=== PATIENT | male | born 1985 | race Caucasian/White ===

== ENCOUNTER → 2020-08-02 | Outpatient (CLI) | payer SELFPAY ==
--- NOTE | 2020-08-02 09:00 | VAS_PTH ---
PATIENT: TICO PENNINGTON LOC: [facility] U#:[id number] AGE/SX: 35/M ROOM: RE08/02/[address]: Dr. Desmond Ojeda MD : [id number] BED: DIS: 08/02/2020 SPEC #: [id number] RECD: 08/02/20 11:19 STATUS: VASILE MADELAINE #: [id number] SANJANA: 08/02/20 09:[address]: Desmond Ojeda DEPT: SURGICAL PATHOLOGY RECD BY: Yanci Castaneda ENTERED: 08/02/20 12:29 SP TYPE: VAS OTHR DR: Dr. Arpit Pennington MD Tissues: A - Vas deferens, NOS B - Vas deferens, NOS Procedures: Surgery Specimen Level II HEADER OPERATION: Bilateral partial vasectomy PRE-OP DIAGNOSIS: Sterilization TISSUE SUBMITTED: A - Right vas deferens, B - Left vas deferens MICROSCOPIC DIAGNOSIS A. Right vas deferens, partial vasectomy: Completely transected segment of vas deferens, no pathologic diagnosis. B. Left vas deferens, partial vasectomy: Completely transected segment of vas deferens, no pathologic diagnosis. ANNA:markos 08/03/2020 MICROSCOPIC DESCRIPTION Slides are reviewed. GROSS DESCRIPTION A - Received is one container designated right vas deferens. The specimen consists of a tubular segment of molina soft tissue measuring 0.8 cm in length and 0.2 cm in diameter. The entire specimen is submitted in one cassette. It will be sectioned at the time of embedding. B - Received is one container designated left vas deferens. The specimen consists of a tubular segment of molina soft tissue measuring 1 cm in length and 0.2 cm in diameter. The entire specimen is submitted in one cassette. It will be sectioned at the time of embedding. / ANNA:markos 08/02/20 TC:4 CPT: 43300 x2
== END | disposition home or self-care (01) ==
LOC: LABSPEC 12:04
PROVIDERS: PCP Family Medicine; Referring Provider Surgery; Visit Provider Surgery
DX: Z30.2 Encounter for sterilization (principal)
CPT/HCPCS: 88302

== ENCOUNTER → 2020-09-07 | Outpatient (CLI) | payer SELFPAY ==
[2020-09-10 12:15] LABS: Semen Analysis Post Vas REVIEWED
== END | disposition home or self-care (01) ==
LOC: LABSPEC 13:26
PROVIDERS: PCP Family Medicine; Referring Provider Surgery; Visit Provider Surgery
DX: Z30.2 Encounter for sterilization (principal)
CPT/HCPCS: 89321

== ENCOUNTER → 2020-10-05 09:38 | Outpatient (CLI) | payer SELFPAY ==
[2020-10-08 13:33] LABS: Semen Analysis Post Vas REVIEWED
== END ==
PROVIDERS: PCP Family Medicine; Referring Provider Surgery; Visit Provider Surgery
DX: Z30.2 Encounter for sterilization (principal)
CPT/HCPCS: 89321

== ENCOUNTER → 2020-10-29 08:35 | Outpatient (CLI) | payer SELFPAY ==
[2020-10-30 12:25] LABS: Semen Analysis Post Vas ABSENT
== END ==
PROVIDERS: PCP Family Medicine; Referring Provider Surgery; Visit Provider Surgery
DX: Z30.2 Encounter for sterilization (principal)
CPT/HCPCS: 36415; 89321

== ENCOUNTER → 2020-10-31 | Outpatient (CLI) | payer SELFPAY ==
[2020-10-31 10:39] LABS: Semen Analysis Post Vas ABSENT
== END | disposition home or self-care (01) ==
LOC: LABSPEC 08:31
PROVIDERS: PCP Family Medicine; Referring Provider Surgery; Visit Provider Surgery
DX: Z98.52 Vasectomy status (principal)
CPT/HCPCS: 89321

== ENCOUNTER → 2024-12-06 | Outpatient (CLI) | payer SELFPAY ==
[2024-12-06 15:58] LABS: Hematocrit 44.7 % (40-54); Hemoglobin 14.6 g/dL (13.0-16.5); Immature Granulocytes Count 0.030 X10^3/uL (0.0-0.0); Mean Corp Hgb Conc 32.7 g/dL (32-36); Mean Corpuscular Volume 90.7 fL (80-94); Mean Platelet Vol. 12.1 fl (6.2-12.0); NRBC Flagged by Analyzer 0 % (0-5); Platelet Count 165 K/mm3 (150-450); RBC Distribution Width CV 13.3 % (11.6-14.6); RBC Distribution Width SD 44.2 fl (35.1-43.9); Red Blood Count 4.93 M/mm3 (4.6-6.2); White Blood Count 6.8 K/mm3 (4.4-11.0)
[2024-12-06 16:51] LABS: CRP 3.64 mg/L (0.0-3.0)
== END | disposition home or self-care (01) ==
LOC: MFPLAB 11:52
PROVIDERS: PCP Family Medicine; Referring Provider Family Medicine; Visit Provider Family Medicine
DX: L23.7 Allergic contact dermatitis due to plants, except food (principal)
CPT/HCPCS: 36415; 85025; 86140